=== PATIENT | male | born 1950 | race Caucasian/White ===

== ENCOUNTER 2016-07-26 14:56 | Outpatient (CLI) | payer MEDICARE, OTHER | END 2016-07-26 14:57 | disposition critical access hospital (66) | LOC: EMS 14:56 | PROVIDERS: ATTEND Surgery | DX: R06.02 Shortness of breath (principal); R42 Dizziness and giddiness | CPT/HCPCS: A0425; A0429 ==

== ENCOUNTER 2016-07-26 15:10 | Inpatient (IN) | payer MEDICARE, OTHER ==
[2016-07-26] MEDS ORDERED: ACETAMINOPHEN 325 MG TABLET PO STA (15:28)
[2016-07-26] MEDS ORDERED: ACETAMINOPHEN 325 MG TABLET PO ONE (15:30)
[2016-07-26 15:38] LABS: LYMPHOCYTES # (AUTO) 0.8 10^3/uL (1.5-3.5); MONOCYTES # (AUTO) 0.5 10^3/uL (0.0-1.0)
[2016-07-26 15:45] LABS: BASOPHILS % (AUTO) 0.3 %; EOSINOPHILS % (AUTO) 0.5 %; LYMPHOCYTES % (AUTO) 8.6 %; MEAN CORPUSCULAR HEMOGLOBIN 29.7 pg (27.0-31.0); MEAN CORPUSCULAR HGB CONC 34.9 g/dL (32.0-36.0); MEAN PLATELET VOLUME 7.3 fL (7.4-11.4); MONOCYTES % (AUTO) 5.3 %; NEUTROPHILS # (AUTO) 7.9 10^3/uL (1.5-6.6); NEUTROPHILS % (AUTO) 85.3 %; RED BLOOD COUNT 5.06 10^6/uL (4.70-6.10); RED CELL DISTRIBUTION WIDTH 13.4 % (12.0-15.0); UNCORRECTED WHITE BLOOD COUNT 9.3 x10^3/uL; WHITE BLOOD COUNT 9.3 x10^3/uL (4.8-10.8)
[2016-07-26 15:48] LABS: ALBUMIN/GLOBULIN RATIO 1.2 (1.0-2.2); BILIRUBIN,TOTAL 1.3 mg/dL (0.2-1.0); CALCIUM 9.6 mg/dL (8.5-10.3); CREATININE 0.7 mg/dL (0.6-1.2); POTASSIUM 3.7 mmol/L (3.5-5.0); TOTAL PROTEIN 8.4 g/dL (6.7-8.2)
--- NOTE | 2016-07-26 15:57 | ED Physician Documentation ---
History of Present Illness - Stated complaint Stated Complaint: COLD/FLU - Chief complaint Chief Complaint: Fever - Additonal information Additional information: hx from pt and EMS65 male cough for a week worsening fever more SOA today sat low 80s on RA BIBA travelled to [facility] about a month ago no leg swelling no hx CHF Review of Systems Constitutional: reports: Fever, Fatigue Ears: denies: Ear pain Throat: denies: Sore throat Cardiac: denies: Chest pain / pressure Respiratory: reports: Dyspnea, Cough GI: denies: Abdominal Pain, Nausea, Vomiting, Diarrhea Musculoskeletal: denies: Extremity swelling Neurologic: reports: Generalized weakness Endocrine: denies: Easy bruising / bleeding Immunocompromised: denies: Immunocompromised PD PAST MEDICAL HISTORY - Past Medical History Cardiovascular: Hypertension, Angina Neuro: CVA Endocrine/Autoimmune: Type 2 diabetes : 7 - Past Surgical History Past Surgical History: Yes General: Hiatal hernia repair - Present Medications Home Medications: Ambulatory Orders Medication Instructions Recorded Confirmed Amlodipine Besylate 2.5 mg PO BID 06/29/12 07/26/16 Aspirin 81 mg PO 06/29/12 06/29/12 Atorvastatin Calcium 40 mg PO 06/29/12 06/29/12 Metformin HCl [Glucophage Xr] 500 mg PO BID 06/29/12 07/26/16 Hydralazine HCl 10 mg PO DAILY 07/26/16 07/26/16 Losartan Potassium 50 mg PO BID 07/26/16 07/26/16 Metoprolol Tartrate 50 mg PO BID 07/26/16 07/26/16 - Allergies Allergies/Adverse Reactions: Allergies Allergy/AdvReac Type Severity Reaction Status Date / Time No Known Drug Allergies Allergy Verified 06/29/12 19:32 - Social History Does the pt smoke?: No Smoking Status: Never smoker Does the pt drink ETOH?: Yes Does the pt have substance abuse?: No PD ED PE NORMAL - Vitals Vital signs reviewed: Yes - General General: Alert and oriented X 3 - HEENT HEENT: PERRL - Neck Neck: Supple, no meningeal sign - Cardiac Cardiac: RRR - Respiratory Respiratory: Other (deep cough, giovana breath sounds) - Abdomen Abdomen: Soft, Non tender - Derm Derm: Normal color - Extremities Extremities: Normal ROM s pain, No edema - Neuro Neuro: Alert and oriented X 3, No motor deficit Results - Vitals Vitals: Vital Signs - 24 hr 07/26/16 07/26/16 07/26/16 15:10 16:13 16:40 Temperature 38.4 C H 37 C Heart Rate 115 H 104 H 93 Respiratory 28 H 22 22 Rate Blood Pressure 162/127 H 147/68 H 135/70 H O2 Saturation 95 92 94 07/26/16 18:11 Temperature 37.7 C H Heart Rate 101 H Respiratory 20 Rate Blood Pressure 149/74 H O2 Saturation 94 Oxygen O2 Source Simple Mask Oxygen Flow Rate 6 - Labs Labs: Laboratory Tests 07/26/16 07/26/16 07/26/16 15:26 15:26 15:26 WBC 9.3 RBC 5.06 Hgb 15.0 Hct 43.0 MCV 85.0 MCH 29.7 MCHC 34.9 RDW 13.4 Plt Count 185 MPV 7.3 L Neut # 7.9 H Lymph # 0.8 L Bell # 0.5 Eos # 0.0 Baso # 0.0 Absolute Nucleated RBC 0.00 Nucleated RBCs 0.0 Sodium 136 Potassium 3.7 Chloride 97 L Carbon Dioxide 25 Anion Gap 14.0 H BUN 13 Creatinine 0.7 Estimated GFR (MDRD) 113 Glucose 152 H Lactic Acid Calcium 9.6 Total Bilirubin 1.3 H AST 64 H ALT 30 Alkaline Phosphatase 64 Troponin I < 0.04 Total Protein 8.4 H Albumin 4.5 Globulin 4.0 Albumin/Globulin Ratio 1.2 Lipase 21 L 07/26/16 15:26 WBC RBC Hgb Hct MCV MCH MCHC RDW Plt Count MPV Neut # Lymph # Bell # Eos # Baso # Absolute Nucleated RBC Nucleated RBCs Sodium Potassium Chloride Carbon Dioxide Anion Gap BUN Creatinine Estimated GFR (MDRD) Glucose Lactic Acid 2.1 Calcium Total Bilirubin AST ALT Alkaline Phosphatase Troponin I Total Protein Albumin Globulin Albumin/Globulin Ratio Lipase - Rads (name of study) CXR Radiology: See rad report (posterior LLL pneumonia with small effusion) CTA Radiology: See rad report (no PE, giovana lower lobe pna, complex renal cyst rec outpt follow up (pt advised) chest adeopathy and possibly thickened soft tissue trachea rec fup (pt advised)) PD MEDICAL DECISION MAKING - ED course ED course: acute giovana pna due to recent travel, tachycardia and hypoxia out of proportion to small pna seen on CXR got CTPA which ruled out PE Departure - Departure Disposition: 66 [facility] DC/Xfer Clinical Impression: Hypoxia, Renal mass, Adenopathy Pneumonia Qualifiers: Pneumonia type: due to unspecified organism Laterality: bilateral Lung location : lower lobe of lung Qualified Code(s): J18.9 - Pneumonia, unspecified organism Condition: Fair
--- NOTE | 2016-07-26 16:14 | XRAY Preliminary Report ---
Exam: XR Chest 2 View PA/LAT IMPRESSION: Posterior left lower lobe bronchopneumonia, with small adjacent effusion. Recommend follo w-up imaging 6-8 weeks after treatment to ensure resolution. [facility] SITE ID: [id number]
--- NOTE | 2016-07-26 16:17 | XRAY Report ---
EXAM: CHEST RADIOGRAPHY EXAM DATE: 07/26/2016 04:05 PM. CLINICAL HISTORY: Cough. COMPARISON: None. TECHNIQUE: 2 views. FINDINGS: Lungs/Pleura: Normal volumes. Bronchial wall thickening with adjacent patchy airspace opacities in th e posterior left base, with small adjacent effusion. No pneumothorax. Mediastinum: Postoperative changes of prior CABG. Normal cardiomediastinal contour. Atherosclerotic c alcifications within the aortic arch. Other: Degenerative changes within the spine. IMPRESSION: Posterior left lower lobe bronchopneumonia, with small adjacent effusion. Recommend follo w-up imaging 6-8 weeks after treatment to ensure resolution. [facility] Referring Provider Line: [phone] SITE ID: [id number]
[2016-07-26] MEDS ORDERED: SODIUM CHLORIDE 0.9% 1,000 ML IV ONE (16:34)
[2016-07-26] MEDS ORDERED: cefTRIAXone 1 GM in SODIUM CHLORIDE 0.9% MINIBAG 100 ML IV STA (16:34)
[2016-07-26] MEDS ORDERED: AZITHROMYCIN INJ 500 MG in SODIUM CHLORIDE 0.9% 250 ML IV STA (16:35)
[2016-07-26] MEDS ORDERED: cefTRIAXone 1 GM VIAL ONE (16:42)
[2016-07-26] MEDS ORDERED: IOPAMIDOL-300 100 ML VIAL IVP ONE (17:19)
--- NOTE | 2016-07-26 17:53 | CT Preliminary Report ---
Exam: CT Chest Angio (PE) IMPRESSION: 1. No evidence of pulmonary embolus. 2. No evidence of thoracic aortic aneurysm or dissection. 3. Bilateral lower lobe right greater than left airspace consolidation most likely due to pneumonitis particularly in the right lower lobe. 4. Mildly prominent mediastinal and hilar lymph nodes are largest right superior paratracheal. 5. Soft tissue thickening along the right lateral superior trachea possibly due to adenopathy. Follow -up is recommended. 6. Status post median sternotomy and bypass surgery. 7. Complex upper pole left renal 12 mm lesion. Once patient's acute clinical symptoms have improved, follow-up evaluation either with ultrasound or CT/MRI recommended. [facility] SITE ID: [id number]
[2016-07-26] MEDS ORDERED: IPRATROPIUM/ALBUTEROL 3 ML NEB INH PRN (18:04)
[2016-07-26] MEDS ORDERED: SODIUM CHLORIDE FLUSH 0.9% 10 ML SYRINGE IVP PRN (18:05)
[2016-07-26] MEDS ORDERED: ONDANSETRON 4 MG/2 ML VIAL IVP PRN (18:05)
[2016-07-26] MEDS ORDERED: ONDANSETRON ODT 4 MG TABLET TL PRN (18:05)
[2016-07-26] MEDS ORDERED: ACETAMINOPHEN 325 MG TABLET PO PRN (18:05)
--- NOTE | 2016-07-26 18:05 | CT Report ---
EXAM: CT ANGIOGRAM CHEST EXAM DATE: 07/26/2016 05:24 p.m. CLINICAL HISTORY: Cough, hypoxia after travel. COMPARISON: 07/26/2016. TECHNIQUE: Routine helical imaging was performed through the chest in the pulmonary arterial phase. I V Contrast: 100 mL of Isovue-300. Reconstructions: Coronal 3-D MIP reconstructions.Sagittal and coron al. In accordance with CT protocol optimization, one or more of the following dose reduction techniques w ere utilized for this exam: automated exposure control, adjustment of mA and/or KV based on patient s ize, or use of iterative reconstructive technique. FINDINGS: Pulmonary Arteries: Diagnostic quality: Adequate through the segmental arteries. No evidence for acute or chronic pulmona ry emboli. Lungs/Pleura: No endobronchial obstruction. No pneumothorax. Bilateral lower lobe airspace consolidat ion is seen more prominently in the right lower lobe in comparison to the left. No pleural effusions. Mediastinum: Heart size is normal. Trace pericardial effusion. Coronary artery calcifications are pre sent. Soft tissue thickening is seen along the right lateral and posterior margins of the superior tr achea seen best on axial image 36 with adjacent mildly prominent superior right paratracheal lymph no umer are noted, the largest measuring 10-11 mm seen best on axial images 35 and 41. Visualized thyroid gland is unremarkable. Changes are seen from median sternotomy and bypass surgery. No mediastinal fl uid collections. Thoracic Aorta: Thoracic aorta is normal in caliber. No dissection. Calcified noncalcified plaque is seen in the thoracic aorta. No mediastinal hematoma. Upper Abdomen: Included portions of the liver, spleen, pancreas, gallbladder and adrenals are unremar kable. Complex upper pole left renal partly exophytic lesion is seen measuring 12 mm, indeterminate. Diverticuli are seen in the visualized colon. Other: Degenerative changes of the thoracic spine, lucent area is seen in T1. Degenerative changes of both shoulders. IMPRESSION: 1. No evidence of pulmonary embolus. 2. No evidence of thoracic aortic aneurysm or dissection. 3. Bilateral lower lobe, right greater than left, airspace consolidation most likely due to pneumonit is particularly in the right lower lobe. 4. Mildly prominent mediastinal and hilar lymph nodes, the largest right superior paratracheal. 5. Soft tissue thickening along the right lateral superior trachea possibly due to adenopathy versus other soft tissue lesion. Follow-up is recommended. 6. Status post median sternotomy and bypass surgery. 7. Complex upper pole left renal 12 mm lesion. Once the patient's acute clinical symptoms have improv ed, follow-up evaluation either with ultrasound or CT/MRI recommended. [facility] Referring Provider Line: [phone] SITE ID: [id number]
--- NOTE | 2016-07-26 18:15 | HISTORY & PHYSICAL EXAMINATION ---
Chief Complaint - Chief Complaint Chief Complaint: Dyspnea and cough History of Present Illness - Admitted From Admitted From:: Emergency Department - History Obtained From Records Reviewed: Yes History obtained from: Patient Exam Limitations: None - History of Present Illness HPI Comment/Other: Pt with a known hx of CAD S/p CABG, DM, HTN and hyperlipidemia. PT had been at his usual state of health until Thursday07/20/16. He began feeling ill with respiratory symptoms, cough with mucus production, and dyspnea. His was ill with similar symptoms starting the day prior. Over the week he developed fever, chills, increased cough, diaphoresis, orthopnea and headache. He was covered in blankets at home and couldn't get warm. Today at home he was coughing uncontrollably and became very dizzy, lightheaded and started to black out so he came in for evaluation. Review of Systems - Constitutional Constitutional: reports: Fever, Chills, Malaise, Night sweats - Eyes Eyes: denies: Pain, Irritation, Field loss - Ears, Nose & Throat Ears, Nose & Throat: denies: Ear pain, Hearing loss, Hearing aids - Cardiovascular Cariovascular: denies: Irregular heart rate, Palpitations, Chest pain - Respiratory Respiratory: reports: Cough, Sputum production, Wheezing, Orthopnea, SOB at rest , SOB with exertion - Gastrointestinal Gastrointestinal: reports: Nausea, Vomiting. denies: Abdominal pain - Genitourinary Genitourinary: denies: Dysuria, Frequency - Musculoskeletal Musculoskeletal: denies: Muscle pain, Back pain, Muscle aches - Integumentary Integumentary: denies: Rash, Pruritis, Lumps - Neurological Neurological: reports: General weakness, Headache, Dizziness. denies: Focal weakness - Psychiatric Psychiatric: denies: Depression, Anxiety - Endocrine Endocrine: denies: Polyuria, Polydypsia - Hematologic/Lymphatic Hematologic/Lymphatic: denies: Anemia, Bruising, Petechiae History - Past Medical History Cardiovascular: reports: Hypertension, Angina Neuro: reports: CVA Endocrine/Autoimmune: reports: Type 2 diabetes : - Past Surgical History General: reports: Hiatal hernia repair Cardiovascular: reports: CABG - Family & Social History Family History: Brother: , CAD Living arrangement: At home Living Situation: With spouse/s.o. - Substance History Use: Uses substance without health or social issues: Alcohol Abuse: Recurrent use of substance despite neg consequences: NONE Dependence: Experiences withdrawal or developed tolerances: NONE - POLST Patient has POLST: Yes POLST Status: Full Code Meds/Allgy - Home Medications Home Medications: Ambulatory Orders Medication Instructions Recorded Confirmed Amlodipine Besylate 2.5 mg PO BID 06/29/12 07/26/16 Aspirin 81 mg PO 06/29/12 06/29/12 Atorvastatin Calcium 40 mg PO 06/29/12 06/29/12 Metformin HCl [Glucophage Xr] 500 mg PO BID 06/29/12 07/26/16 Hydralazine HCl 10 mg PO DAILY 07/26/16 07/26/16 Losartan Potassium 50 mg PO BID 07/26/16 07/26/16 Metoprolol Tartrate 50 mg PO BID 07/26/16 07/26/16 - Allergies Allergies/Adverse Reactions: Allergies Allergy/AdvReac Type Severity Reaction Status Date / Time No Known Drug Allergies Allergy Verified 06/29/12 19:32 Exam - Vital Signs Vital Signs: Vital Signs x48h Temp Pulse Resp BP Pulse Ox 07/26/16 16:40 93 22 135/70 H 94 07/26/16 16:13 37 C 104 H 22 147/68 H 92 07/26/16 15:10 38.4 C H 115 H 28 H 162/127 H 95 - Physical Exam General Appearance: positive: No acute distress, Alert Eyes Bilateral: positive: Normal inspection, PERRL, EOMI, Conjunctivae nml ENT: positive: ENT inspection nml, Pharynx nml Neck: positive: Nml inspection, No JVD Respiratory: positive: Chest non-tender, Rales, Rhonchi Cardiovascular: positive: Regular rate & rhythm, No murmur, No gallop Peripheral Pulses: positive: 2+ Abdomen: positive: Non-tender, No organomegaly, Nml bowel sounds, No distention. negative: Tenderness, Guarding, Rebound Back: positive: Nml inspection Skin: positive: Color nml, No rash, Warm, Dry Extremities: positive: Non-tender, Full ROM Neurologic/Psychiatric: positive: Oriented x3, CN's nml (2-12) Conclusion/Plan - Problem List (1) Sepsis Conclusion/Plan: Secondary to pulmonary infection. elevated HR, respiratory rate, hypoxemia. BP is stable, WBC normal, lactic acid normal. Plan: Monitor on medical floor. treat infection with IV antibiotics. Will fluid bolus if lactic acid elevated on repeat blood draw. (2) Pneumonia Conclusion/Plan: Bilateral lower lobe consolidations. Sx consistent with pneumonia. Started on ABX. Meets sepsis criteria: tachypnea, tachycardia and hypoxemia. WBC and Lactic acid normal range Plan: pt will be continued on Antibiotics. IV Fluids. Will repeat Lactic acid and bolus if elevated. repeat labs in AM (3) Hypoxemia Conclusion/Plan: Secondary to pneumonia. Please see that diagnosis for plan (4) CAD (coronary artery disease) Conclusion/Plan: S/P CABG. Denies chest pain or anginal SX. Plan Continue home medications. No ischemic evaluation needed Qualifiers: Coronary Disease-Associated Artery/Lesion type: [place] artery [place] vs. transplanted heart: [place] heart Associated angina: without angina Qualified Code(s): I25.10 - Atherosclerotic heart disease of [place] coronary artery without angina pectoris (5) Diabetes mellitus Conclusion/Plan: PT on PO medications for control as OP. No complications. Will cover with insulin per sliding scale while admitted. BG checks AC and HS Qualifiers: Diabetes mellitus type: type 2 Diabetes mellitus complication status: without complication (6) HTN (hypertension) Conclusion/Plan: Mildly elevated today in ED. Controlled on home medications. Plan: Will continue home medications. Monitor routine labs - Lab Results Lab results reviewed: Yes Fish Bones: 07/26/16 15:26 07/26/16 15:26 - Diagnostic Imaging Results Diagnostic Imaging Results: positive: Final report reviewed Issues/Core Measures - Anticipated LOS Anticipated Stay Length: 2 or more midnights - DVT/VTE - Prophylaxis VTE/DVT Prophylaxis med ordered at admit?: Yes - Stroke - Rehab Assessment Rehab services assessment to be ordered?: No Not Ordered - Medical Reason: Not indicated - AMI - Statin at Admit Aspirin Prescribed on Admit: Yes
[2016-07-26] MEDS ORDERED: SODIUM CHLORIDE 0.9% 1,000 ML IV SCH (19:00)
[2016-07-26 20:17] LABS: HEMOGLOBIN A1C 0.78 g/dL
[2016-07-26] MEDS: amLODIPine 5 MG TABLET PO SCH (21:44)
[2016-07-26] MEDS: METOPROLOL TARTRATE 50 MG TABLET PO SCH (21:46)
[2016-07-26] MEDS: LOSARTAN 50 MG TABLET PO SCH (21:46)
[2016-07-26] MEDS: ATORVASTATIN 40 MG TABLET PO SCH (21:49)
[2016-07-26] MEDS: INSULIN ASPART 300 UNIT/3 ML PEN SUBQ SCH (21:50)
[2016-07-26] MEDS: SODIUM CHLORIDE FLUSH 0.9% 10 ML SYRINGE IVP SCH (21:52)
[2016-07-26] MEDS ORDERED: guaiFENesin/CODEINE 5 ML UDC PO PRN (23:02)
[2016-07-26] MEDS ORDERED: SODIUM CHLORIDE 0.9% 500 ML IV ONE (23:03)
[2016-07-27] MEDS: SODIUM CHLORIDE 0.9% 1,000 ML IV SCH ×4 (02:39→23:52)
[2016-07-27 04:39] LABS: HCT - HEMATOCRIT 37.9 % (42.0-52.0); HGB - HEMOGLOBIN 12.9 g/dL (14.0-18.0); MEAN CORPUSCULAR HEMOGLOBIN 29.3 pg (27.0-31.0); MEAN CORPUSCULAR HGB CONC 33.9 g/dL (32.0-36.0); MEAN CORPUSCULAR VOLUME 86.4 fL (80.0-94.0); MEAN PLATELET VOLUME 7.5 fL (7.4-11.4); RED BLOOD COUNT 4.39 10^6/uL (4.70-6.10); RED CELL DISTRIBUTION WIDTH 13.8 % (12.0-15.0); WHITE BLOOD COUNT 11.8 x10^3/uL (4.8-10.8)
[2016-07-27 04:46] LABS: CALCIUM 8.8 mg/dL (8.5-10.3); CREATININE 0.7 mg/dL (0.6-1.2); POTASSIUM 3.8 mmol/L (3.5-5.0)
[2016-07-27] MEDS: PANTOPRAZOLE 40 MG TABLET PO SCH (06:45)
[2016-07-27] MEDS: SODIUM CHLORIDE FLUSH 0.9% 10 ML SYRINGE IVP SCH ×3 (06:46→21:22)
--- NOTE | 2016-07-27 08:42 | PROVIDER PROGRESS NOTE ---
Assessment/Plan - Problem List (1) Sepsis Qualifiers: Sepsis type: sepsis due to unspecified organism Qualified Code(s): A41.9 - Sepsis, unspecified organism Assessment/Plan: Lactate increased to 2.5 over night and improved after bolus to 1.1. WBC increased to 11.8. PT is afebrile this AM. HE is feeling better though cough remains. Underlying etiology is CAP. Tolerating ABx without ADR. Plan: Continue antibiotics. Maintain hydration. Add Expectorant to help clear congestion. (2) Pneumonia Qualifiers: Pneumonia type: due to unspecified organism Laterality: bilateral Lung location: lower lobe of lung Qualified Code(s): J18.9 - Pneumonia, unspecified organism Assessment/Plan: Community acquired pneumonia. Meets sepsis criteria on admission. Feels better with current treatment. Cough improved but remains productive and increases with laying down. Plan: Continue antibiotics. Fluid replacement. Mucinex BID. Flutter valve TID. Anticipate discharge in 2 days. (3) Hypoxemia Assessment/Plan: Improving. See treatment of pneumonia (4) CAD (coronary artery disease) Qualifiers: Coronary Disease-Associated Artery/Lesion type: [place] artery [place] vs. transplanted heart: [place] heart Associated angina: without angina Qualified Code(s): I25.10 - Atherosclerotic heart disease of [place] coronary artery without angina pectoris Assessment/Plan: Stable without angina. No changes to medications (5) Diabetes mellitus Qualifiers: Diabetes mellitus type: type 2 Diabetes mellitus complication status: without complication Assessment/Plan: Continue current treatment. Will restart home medications at discharge (6) HTN (hypertension) Assessment/Plan: Controlled. No changes today - Current Meds Current Meds: Current Medications Generic Name Dose Route Start Last Admin Trade Name Freq PRN Reason Stop Dose Admin Amlodipine Besylate 2.5 mg 07/26/16 21:00 07/26/16 21:44 Norvasc PO 2.5 mg BID NUPUR Administration Atorvastatin Calcium 80 mg 07/26/16 21:00 07/26/16 21:49 Lipitor PO 80 mg QPM NUPUR Administration Sodium Chloride 1,000 mls @ 125 mls/hr 07/26/16 23:04 07/27/16 06:37 Normal Saline 0.9% IV 125 mls/hr .Q8H NUPUR Administration Insulin Aspart 1 - 9 unit 07/26/16 21:00 07/26/16 21:50 Novolog SUBQ 3 unit 0800,1200,1700,2100 NUPUR Administration Protocol Losartan Potassium 50 mg 07/26/16 21:00 07/26/16 21:46 Cozaar PO 50 mg BID NUPUR Administration Metoprolol Tartrate 50 mg 07/26/16 21:00 07/26/16 21:46 Lopressor PO 50 mg BID NUPUR Administration Pantoprazole Sodium 40 mg 07/27/16 07:00 07/27/16 06:45 Protonix PO 40 mg QDAC NUPUR Administration Sodium Chloride 10 ml 07/26/16 22:00 07/27/16 06:46 Normal Saline Flush 0.9% IVP Not Given Q8HR NUPUR - Lab Result Lab results reviewed: Yes Fish Bone Diagrams: 07/27/16 04:19 07/27/16 04:19 - Diagnostic Imaging Results Diagnostic Imaging Results: positive: Final report reviewed - Additional Planning Condition/Complexity: Improved My Orders: My Active Orders 07/26/16 18:35 Blood Glucose Checks - Eating [RC] 0800,1200,1700,2100 Initiate Hypoglycemia Protocol [RC] .protocol 07/26/16 19:00 RT [Nebulizer/MDI Tx.] [RC] .Q4PRN 07/26/16 21:00 Insulin Aspart [NovoLOG] 1 - 9 unit SUBQ 0800,1200,1700,2100 07/27/16 08:35 Acapella (Flutter Valve Device [RC] TID 07/27/16 09:00 guaiFENesin [Mucinex] 600 mg PO BID Plan Discussed with:: Patient Time Spent: 15-30 minutes Subjective - Subjective Patient Reports: Feeling Better (Pt is feeling better. Cough has improved. No fever or chills last night. Denies chest pain. Still haivng trouble clearing lungs) Nursing Reports: No Complaints Objective Vital Signs: Vital Signs - 24 hr 07/26/16 07/26/16 07/26/16 18:11 18:48 19:38 Temperature 37.7 C H 37.5 C Heart Rate 101 H 94 Heart Rate [ 104 H Brachial] Respiratory 20 20 24 Rate Blood Pressure 149/74 H 144/81 H Blood Pressure [Left Brachial artery] Blood Pressure 148/77 H [Right Brachial artery] O2 Saturation 94 97 94 07/26/16 07/26/16 07/26/16 19:55 21:46 23:35 Temperature 36.7 C Heart Rate 86 Heart Rate [ 86 Brachial] Respiratory 22 20 Rate Blood Pressure 166/76 H Blood Pressure [Left Brachial artery] Blood Pressure 122/66 [Right Brachial artery] O2 Saturation 95 07/27/16 07/27/16 07:35 07:43 Temperature 37 C Heart Rate 70 Heart Rate [ 72 Brachial] Respiratory 18 18 Rate Blood Pressure Blood Pressure 131/71 H [Left Brachial artery] Blood Pressure [Right Brachial artery] O2 Saturation 94 Oxygen O2 Source Nasal cannula I&O (Last 24 Hrs): Intake and Output Totals x24h 07/25/16 07/26/16 07/27/16 23:59 23:59 23:59 Intake Total 854 1256 Output Total 600 2000 Balance 254 -744 General: Alert, Oriented x3 HEENT: Atraumatic, PERRLA Neck: No JVD Neuro: Alert, CN 2-12 Grossly Intact, Oriented Times 3 Cardiovascular: Regular rate Respiratory: No respiratory distress, Wheezes, Rales, Rhonchi Abdomen: Normal bowel sounds, Soft Extremities: No clubbing, No edema Skin: No rashes, No breakdown - Results Results: Laboratory Results WBC 11.8 x10^3/uL (4.8-10.8) H 07/27/16 04:19 RBC 4.39 10^6/uL (4.70-6.10) L 07/27/16 04:19 Hgb 12.9 g/dL (14.0-18.0) L 07/27/16 04:19 Hct 37.9 % (42.0-52.0) L 07/27/16 04:19 MCV 86.4 fL (80.0-94.0) 07/27/16 04:19 MCH 29.3 pg (27.0-31.0) 07/27/16 04:19 MCHC 33.9 g/dL (32.0-36.0) 07/27/16 04:19 RDW 13.8 % (12.0-15.0) 07/27/16 04:19 Plt Count 163 10^3/uL (130-450) 07/27/16 04:19 MPV 7.5 fL (7.4-11.4) 07/27/16 04:19 Neut # 7.9 10^3/uL (1.5-6.6) H 07/26/16 15:26 Lymph # 0.8 10^3/uL (1.5-3.5) L 07/26/16 15:26 [place] # 0.5 10^3/uL (0.0-1.0) 07/26/16 15:26 Eos # 0.0 10^3/uL (0.0-0.7) 07/26/16 15:26 Baso # 0.0 10^3/uL (0.0-0.1) 07/26/16 15:26 Absolute Nucleated RBC 0.00 x10^3/uL 07/26/16 15:26 Nucleated RBCs 0.0 /100WBC 07/26/16 15:26 Sodium 136 mmol/L (135-145) 07/27/16 04:19 Potassium 3.8 mmol/L (3.5-5.0) 07/27/16 04:19 Chloride 108 mmol/L (101-111) 07/27/16 04:19 Carbon Dioxide 23 mmol/L (21-32) 07/27/16 04:19 Anion Gap 5.0 (6-13) L 07/27/16 04:19 BUN 12 mg/dL (6-20) 07/27/16 04:19 Creatinine 0.7 mg/dL (0.6-1.2) 07/27/16 04:19 Estimated GFR (MDRD) 113 (>89) 07/27/16 04:19 Glucose 138 mg/dL (70-100) H 07/27/16 04:19 Glycated Hemoglobin 6.5 % (4.6-6.2) H 07/26/16 15:26 Estim Average Glucose 140 (70-100) H 07/26/16 15:26 Lactic Acid 1.1 mmol/L (0.5-2.2) 07/27/16 04:19 Calcium 8.8 mg/dL (8.5-10.3) 07/27/16 04:19 Total Bilirubin 1.3 mg/dL (0.2-1.0) H 07/26/16 15:26 AST 64 IU/L (10-42) H 07/26/16 15:26 ALT 30 IU/L (10-60) 07/26/16 15:26 Alkaline Phosphatase 64 IU/L (42-121) 07/26/16 15:26 Troponin I < 0.04 ng/mL (<0.49) 07/26/16 15:26 Total Protein 8.4 g/dL (6.7-8.2) H 07/26/16 15:26 Albumin 4.5 g/dL (3.2-5.5) 07/26/16 15:26 Globulin 4.0 g/dL (2.1-4.2) 07/26/16 15:26 Albumin/Globulin Ratio 1.2 (1.0-2.2) 07/26/16 15:26 Lipase 21 U/L (22-51) L 07/26/16 15:26
[2016-07-27] MEDS: INSULIN ASPART 300 UNIT/3 ML PEN SUBQ SCH ×4 (09:27→21:20)
[2016-07-27] MEDS: amLODIPine 5 MG TABLET PO SCH ×2 (09:28→21:19)
[2016-07-27] MEDS: ASPIRIN CHEW 81 MG TABLET PO SCH (09:29)
[2016-07-27] MEDS: hydrALAZINE 10 MG TABLET PO SCH (09:29)
[2016-07-27] MEDS: guaiFENesin 600 MG TABLET PO SCH ×2 (09:29→21:20)
[2016-07-27] MEDS: LOSARTAN 50 MG TABLET PO SCH ×2 (09:29→21:23)
[2016-07-27] MEDS: METOPROLOL TARTRATE 50 MG TABLET PO SCH ×2 (09:47→21:19)
[2016-07-27] MEDS: POLYETHYLENE GLYCOL 3350 17 GM PACKET PO SCH (09:47)
[2016-07-27] MEDS ORDERED: AZITHROMYCIN INJ 500 MG in SODIUM CHLORIDE 0.9% 250 ML IV SCH (16:00)
[2016-07-27] MEDS ORDERED: cefTRIAXone 1 GM in SODIUM CHLORIDE 0.9% MINIBAG 100 ML IV SCH (17:00)
[2016-07-27] MEDS: ATORVASTATIN 40 MG TABLET PO SCH (21:20)
[2016-07-28] MEDS: PANTOPRAZOLE 40 MG TABLET PO SCH (06:09)
[2016-07-28] MEDS: SODIUM CHLORIDE FLUSH 0.9% 10 ML SYRINGE IVP SCH ×2 (06:10→14:53)
[2016-07-28] MEDS ORDERED: SENNA 8.6 MG TABLET PO SCH (08:00)
[2016-07-28] MEDS: SODIUM CHLORIDE 0.9% 1,000 ML IV SCH (08:11)
[2016-07-28] MEDS: INSULIN ASPART 300 UNIT/3 ML PEN SUBQ SCH ×2 (08:12→12:07)
[2016-07-28] MEDS: amLODIPine 5 MG TABLET PO SCH (08:12)
[2016-07-28] MEDS: hydrALAZINE 10 MG TABLET PO SCH (08:13)
[2016-07-28] MEDS: ASPIRIN CHEW 81 MG TABLET PO SCH (08:14)
[2016-07-28] MEDS: guaiFENesin 600 MG TABLET PO SCH (08:14)
[2016-07-28] MEDS: LOSARTAN 50 MG TABLET PO SCH (08:14)
[2016-07-28] MEDS: METOPROLOL TARTRATE 50 MG TABLET PO SCH (08:15)
[2016-07-28] MEDS: POLYETHYLENE GLYCOL 3350 17 GM PACKET PO SCH (08:15)
[2016-07-28] MEDS: DOCUSATE SODIUM 250 MG CAPSULE PO SCH ×2 (09:33→10:21)
[2016-07-28] MEDS ORDERED: AZITHROMYCIN INJ 500 MG in SODIUM CHLORIDE 0.9% 250 ML IV SCH (12:00)
[2016-07-28] MEDS ORDERED: cefTRIAXone 1 GM in SODIUM CHLORIDE 0.9% MINIBAG 100 ML IV SCH (13:00)
--- NOTE | 2016-07-28 14:50 | Discharge Plan ---
Discharge Plan Disposition: 01 Home, Self Care Condition: Fair Prescriptions: guaiFENesin/CODEINE [Robitussin AC] 5 ml PO Q6HR PRN #120 ml PRN Reason: Cough guaiFENesin [Mucinex] 600 mg PO BID #30 tablet Diet: Diabetic Activity Restrictions: No Restrictions Weight Bearing: Full Weight No Smoking: If you smoke, Please STOP! Call for help. Follow-up with: Dominga Jones MD [Physician No Access] - 2 Weeks
[2016-07-28 16:00] VITALS: BP 157/94
--- NOTE | 2016-07-29 09:23 | DISCHARGE SUMMARY ---
DATE OF ADMISSION: 07/26/2016 DATE OF DISCHARGE: 07/28/2016 PRIMARY CARE PROVIDER: Dominga Jones MD DISCHARGING PROVIDER: Daniel Baca PA-C ADMITTING DIAGNOSES 1. Sepsis secondary to pulmonary infection. 2. Pneumonia. a. Bilateral lower lobe consolidations. b. Community acquired. 3. Hypoxia secondary to pneumonia and sepsis. 4. Coronary artery disease with history of coronary artery bypass graft. 5. Diabetes mellitus on oral medications. 6. Hypertension - mildly elevated during hospital admission. DISCHARGE DIAGNOSES 1. Sepsis. a. Resolved. b. Secondary to pneumonia. c. Associated with hypoxemia, respiratory rate elevation, tachycardia, elevated white blood cell coun t, and lactic acid during hospitalization. 2. Pneumonia, bilateral lower lobe consolidations. a. Community acquired. 3. Hypoxemia - resolved by discharge. 4. Coronary artery disease. a. Status post coronary artery bypass graft. b. No chest pain or anginal equivalent symptoms during hospitalization. 5. Diabetes mellitus. a. Controlled on oral medication. b. Covered with insulin sliding scale during admission. 6. Hypertension. BRIEF HISTORY OF PRESENT ILLNESS: For specifics, please see that on admission. This is a gentleman wh o began feeling ill 07/20/2016 with respiratory symptoms, cough, and mucus production, came to the em ergency department for evaluation and found to have bilateral pneumonia. COURSE IN CENTER: Patient was started on Rocephin and azithromycin. [facility]. He was hydrated with normal saline 125 mL/hour. The patient was garry ated with continued antibiotic therapy of Rocephin and azithromycin daily. He was given guaifenesin 6 00 mg b.i.d. to help with mucus control. He was also treated with Robitussin A-C for cough. The patie nt did well during his hospitalization. He did have an elevated white blood cell count on day #2 to 1 1.8. The patient did well on his antibiotic therapy. His respiratory status improved. He was no longe r hypoxic prior to discharge with an oxygen saturation of 96%, while ambulating, on room air. The pat ient was given a flutter valve to help break up the pulmonary secretions. The guaifenesin and fluids also may have helped him make improvements. At time of discharge, the patient was doing well. He was no longer febrile. His heart rate was in a normal range. His oxygenation was 96% to 98% on room air, and he had a normal respiratory rate. PHYSICAL EXAMINATION ON DISCHARGE GENERAL: Well-developed, well-nourished, in no acute distress. HEENT: Normocephalic, atraumatic. Pupils equal, round, reactive to light. EOMs intact. NECK: Without elevated JVD. CHEST: Good respiratory effort. Bibasilar crackles, right-sided rhonchi present. CARDIOVASCULAR: Regular rate and rhythm. Normal S1, S2 without S3 or S4. ABDOMEN: Benign. EXTREMITIES: Without edema. NEUROLOGIC: Cranial nerves 2 through 12 grossly intact. PSYCHIATRIC: Mood and affect appropriate. DISCHARGE MEDICATIONS 1. Albuterol MDI 2 puffs q.6 hours as needed for dyspnea or wheezing. 2. Robitussin A-C 5 mL every 6 hours as needed. 3. Hydralazine 10 mg daily. 4. Losartan 50 mg b.i.d. 5. Lipitor 40 mg daily. 6. Metoprolol tartrate 50 mg b.i.d. 7. Guaifenesin 600 mg b.i.d. 8. Amlodipine 2.5 mg b.i.d. 9. Metformin 500 mg b.i.d. 10. Amoxicillin 875 b.i.d. 11. Azithromycin 500 mg daily. DISPOSITION: He will be discharged to home. Follow up with primary care provider in 1-2 weeks. Sy t should return to the emergency department if respiratory status declines. Greater than 30 minutes was spent in discharge of patient, including decision making and counseling. Thank you for the opportunity to participate in the care of the patient and all his medical needs. JOB #: [id number] EXT JOB #:[id number]
== END 2016-07-28 16:07 | disposition home or self-care (01) | DRG 871 ==
LOC: EDUNIT# → ED 15:10 → MS 18:05
PROVIDERS: ADMIT Physician Assistant; ATTEND Physician Assistant
DX: J18.9 Pneumonia, unspecified organism (principal); A41.9 Sepsis, unspecified organism; N28.89 Other specified disorders of kidney and ureter; R59.9 Enlarged lymph nodes, unspecified; J18.1 Lobar pneumonia, unspecified organism; R09.02 Hypoxemia; I25.10 Atherosclerotic heart disease of native coronary artery without angina pectoris; Z95.1 Presence of aortocoronary bypass graft; E11.9 Type 2 diabetes mellitus without complications; Z79.84 Long term (current) use of oral hypoglycemic drugs; I10 Essential (primary) hypertension; E78.5 Hyperlipidemia, unspecified; Z86.73 Personal history of transient ischemic attack (TIA), and cerebral infarction without residual deficits; Z79.82 Long term (current) use of aspirin
CPT/HCPCS: 36415; 71020; 71275; 80048; 80053; 83036; 83605; 83690; 84484; 85025; 87040; 94640; 96361; 96374; 96375; 99284